=== PATIENT | male | born 1935 | race Caucasian/White ===

== ENCOUNTER 2017-05-31 20:20 | Inpatient (IN) | payer OTHER ==
[~2017-05-31] VITALS: Ht 167.6 cm; Wt 87.0 kg
[~2017-05-31 20:20] MED LIST: AMLODIPINE BESY10 MG PO; ARTHRITIS PAIN650 M5 PO; COLCRYS0.6 MG PO; COUMADIN3 MG PO; DOCUSATE SODIU100 MG PO; ENALAPRIL MALEA20 MG PO; FELODIPINE ER10 MG PO; FISH OIL 1,0001 EAC7 PO; GLUCOTROL XL2.5 MG PO; IRON325 M1 PO; LIDOCAINE700 MG TD; LISINOPRIL5 MG PO; LOPRESSOR50 MG PO; METOPROLOL SUCC25 MG PO; PANTOPRAZOLE SO40 MG PO; PLENDIL10 MG PO; POTASSIUM CHLO20 ME1 PO; SENNA-TIME S T1 EACH PO; THERAGRAN1 TABLET PO; TOPROL XL25 MG PO; TYLENOL EXTRA500 MG PO; XANAX0.25 MG PO; ZOCOR20 MG PO
[2017-05-31 20:50] LABS: HEMATOCRIT 46.9 % (38.0-50.0); HEMOGLOBIN 14.2 G/DL (12.5-16.6); MCH 28.3 PG (29.0-34.0); MCHC 30.3 G/DL (30.0-36.0); MCV 93.4 FL (86-99); PLATELET COUNT 191 K/uL (156-360); RBC DIS.WIDTH-CV 16.6 % (11.8-14.6); RBC DIS.WIDTH-SD 56.8 % (39-53); RED BLOOD COUNT 5.02 M/uL (4.00-5.50); WHITE BLOOD COUNT 9.9 K/uL (4.1-10.2)
[2017-05-31 21:02] LABS: CHLORIDE 106 mEq/L (99-109); POTASSIUM 4.7 mEq/L (3.7-5.4); SODIUM 143 mEq/L (136-147)
[2017-05-31 21:03] LABS: GLUCOSE 132 mg/dL (70-99)
[2017-05-31 21:07] LABS: CREATININE 1.3 mg/dL (0.6-1.3); GFR ESTIMATE (CALCULATED) 57 mL/min/ (58.99-99999)
[2017-05-31 21:08] LABS: UREA NITROGEN (BUN) 21 mg/dL (9-23)
[2017-05-31 21:11] LABS: TROP-I INTERPRETATION NEGATIVE; TROPONIN-I 0.08 ng/mL (0.0-0.30)
[2017-05-31 21:36] LABS: BASE EXCESS -7.8 mEq/L (-3 to +3); METHEMOGLOBIN 0.9 % (0-1.5); pH 7.31 (7.35-7.45)
[2017-05-31 21:37] LABS: BICARBONATE 17.6 mEq/L (22-26); COMMENTS - BLOOD GASES C+A+; DEVICE HHFNC; FI02 100 %; O2 FLOW 55 L/MIN; PCO2 35 mm Hg (35-45); PO2 84 mm Hg (80-100); SITE RR; TOTAL RESP RATE 22 resp/min
[2017-05-31] MEDS ORDERED: COUMADIN3 MG PO (23:18)
[2017-05-31] MEDS ORDERED: CYANOCOBALAM1000 MCG PO (23:20)
[2017-05-31] MEDS ORDERED: ALBUTEROL2.5 MG/3 M IH (23:20)
[2017-05-31] MEDS ORDERED: K-DUR20 MEQ PO (23:20)
[2017-05-31] MEDS ORDERED: AMBIEN10 MG PO (23:20)
[2017-05-31] MEDS ORDERED: OMEPRAZOLE20 MG PO (23:20)
[2017-05-31] MEDS ORDERED: FUROSEMIDE20 MG PO (23:20)
[2017-05-31] MEDS ORDERED: PROAIR HFA8.5 GM IH (23:23)
[2017-06-01] VITALS (20 sets, daily range): BP systolic 121–176; BP diastolic 69–142
[2017-06-01 01:31] LABS: INTER. NORMALIZED RATIO 3.5
[2017-06-01 01:34] LABS: PTT 38.8 SEC (25-37)
[2017-06-01 06:10] LABS: CHLORIDE 107 mEq/L (99-109); MAGNESIUM 1.7 mg/dL (1.3-2.7); POTASSIUM 4.2 mEq/L (3.7-5.4); SODIUM 142 mEq/L (136-147)
[2017-06-01 06:12] LABS: GLUCOSE 144 mg/dL (70-99)
[2017-06-01 06:15] LABS: PHOSPHORUS 3.9 mg/dL (2.5-4.9)
[2017-06-01 06:16] LABS: CREATININE 1.2 mg/dL (0.6-1.3); GFR ESTIMATE (CALCULATED) > 59 mL/min/ (58.99-99999); UREA NITROGEN (BUN) 24 mg/dL (9-23)
[2017-06-01 06:29] LABS: INTER. NORMALIZED RATIO 3.3
[2017-06-01 07:54] LABS: BASOPHIL (%) 0.4 % (0-1); EOSINOPHIL (%) 0 % (0-5); HEMATOCRIT 42.3 % (38.0-50.0); HEMOGLOBIN 13.3 G/DL (12.5-16.6); IMMATURE GRANULOCYTE (%) 0.3 % (0.0-0.7); LYMPHOCYTE (%) 7.4 % (15-42); LYMPHOCYTE COUNT 0.5 K/uL (1.0-2.8); MCH 28.1 PG (29.0-34.0); MCHC 31.4 G/DL (30.0-36.0); MONOCYTE (%) 9.6 % (3-12); MONOCYTE COUNT 0.7 K/uL (0-0.8); NEUTROPHIL (%) 82.3 % (45-76); NEUTROPHIL COUNT 5.7 K/uL (1.8-6.4); PLATELET COUNT 153 K/uL (156-360); RBC DIS.WIDTH-CV 16.4 % (11.8-14.6); RBC DIS.WIDTH-SD 53.9 % (39-53); RED BLOOD COUNT 4.73 M/uL (4.00-5.50); WHITE BLOOD COUNT 6.9 K/uL (4.1-10.2)
[2017-06-01 07:55] LABS: MCV 89.4 FL (86-99)
[2017-06-01 14:53] LABS: INTER. NORMALIZED RATIO 2.7
[2017-06-01 20:37] LABS: INTER. NORMALIZED RATIO 2.2
[2017-06-01 20:40] LABS: PTT 33.9 SEC (25-37)
[2017-06-02] VITALS (27 sets, daily range): BP systolic 71–229; BP diastolic 46–115
[2017-06-02 06:47] LABS: INTER. NORMALIZED RATIO 1.7
[2017-06-02 13:05] LABS: BODY FLUID PROTEIN 3.5 G/DL
[2017-06-02 13:37] LABS: TYPE OF FLUID PLEURAL
[2017-06-02 13:43] LABS: BASE EXCESS -1.7 mEq/L (-3 to +3); BICARBONATE 21.9 mEq/L (22-26); CARBOXY HGB 2.4 % (0-5); METHEMOGLOBIN 1.4 % (0-1.5); PCO2 33 mm Hg (35-45); PO2 77 mm Hg (80-100); SITE RR; pH 7.43 (7.35-7.45)
[2017-06-02 13:45] LABS: DEVICE VENT; FI02 40 %
[2017-06-02 13:46] LABS: MECHANICAL RATE 16 resp/min; MODE AC; PEEP 8 CM/H20; TIDAL VOLUME 500 ML; TOTAL RESP RATE 16 resp/min
[2017-06-02 13:57] LABS: APPEARANCE SL.HAZY/YELLOW
[2017-06-02 14:05] LABS: TOTAL PROTEIN 5.2 G/DL (6.4-8.3)
[2017-06-02 14:19] LABS: BODY FLUID EOSINOPHILS 0 % (0-25); BODY FLUID RBC'S 4000 /MM^3 (0-100); BODY FLUID WBC'S 283 /MM^3 (0-500); MONONUCLEAR WBC'S 49 %; POLYNUCLEAR WBC'S 51 % (0-25)
[2017-06-03] VITALS (21 sets, daily range): BP systolic 101–157; BP diastolic 51–76
[2017-06-03 03:18] LABS: HEMATOCRIT 40.5 % (38.0-50.0); HEMOGLOBIN 13.4 G/DL (12.5-16.6); MCH 28.4 PG (29.0-34.0); MCHC 33.1 G/DL (30.0-36.0); MCV 85.8 FL (86-99); NRBC (%) 0.3 /100 WBC (0-0); PLATELET COUNT 128 K/uL (156-360); RBC DIS.WIDTH-CV 16.4 % (11.8-14.6); RBC DIS.WIDTH-SD 51.4 % (39-53); RED BLOOD COUNT 4.72 M/uL (4.00-5.50); WHITE BLOOD COUNT 7.3 K/uL (4.1-10.2)
[2017-06-03 03:33] LABS: CHLORIDE 111 mEq/L (99-109); POTASSIUM 3.9 mEq/L (3.7-5.4); SODIUM 142 mEq/L (136-147)
[2017-06-03 03:34] LABS: GLUCOSE 134 mg/dL (70-99)
[2017-06-03 03:38] LABS: CREATININE 1.6 mg/dL (0.6-1.3); GFR ESTIMATE (CALCULATED) 45 mL/min/ (58.99-99999)
[2017-06-03 03:42] LABS: UREA NITROGEN (BUN) 45 mg/dL (9-23)
[2017-06-04] VITALS (18 sets, daily range): BP systolic 141–170; BP diastolic 53–84
[2017-06-04 08:23] LABS: BASOPHIL (%) 0.2 % (0-1); EOSINOPHIL (%) 0 % (0-5); HEMATOCRIT 42.6 % (38.0-50.0); HEMOGLOBIN 13.1 G/DL (12.5-16.6); IMMATURE GRANULOCYTE (%) 0.4 % (0.0-0.7); LYMPHOCYTE (%) 7.7 % (15-42); LYMPHOCYTE COUNT 0.4 K/uL (1.0-2.8); MCH 27.3 PG (29.0-34.0); MCHC 30.8 G/DL (30.0-36.0); MCV 88.9 FL (86-99); MONOCYTE (%) 8.1 % (3-12); MONOCYTE COUNT 0.4 K/uL (0-0.8); NEUTROPHIL (%) 83.6 % (45-76); NEUTROPHIL COUNT 4.3 K/uL (1.8-6.4); PLATELET COUNT 90 K/uL (156-360); RBC DIS.WIDTH-CV 16.7 % (11.8-14.6); RBC DIS.WIDTH-SD 54.3 % (39-53); RED BLOOD COUNT 4.79 M/uL (4.00-5.50); WHITE BLOOD COUNT 5.1 K/uL (4.1-10.2)
[2017-06-04 09:00] LABS: CHLORIDE 116 mEq/L (99-109); POTASSIUM 3.7 mEq/L (3.7-5.4); SODIUM 146 mEq/L (136-147)
[2017-06-04 09:01] LABS: MAGNESIUM 1.8 mg/dL (1.3-2.7)
[2017-06-04 09:02] LABS: GLUCOSE 141 mg/dL (70-99)
[2017-06-04 09:06] LABS: CREATININE 1.2 mg/dL (0.6-1.3); GFR ESTIMATE (CALCULATED) > 59 mL/min/ (58.99-99999); UREA NITROGEN (BUN) 44 mg/dL (9-23)
[2017-06-04 10:15] LABS: PHOSPHORUS 3.4 mg/dL (2.5-4.9)
[2017-06-05 00:12] VITALS: BP 173/77
[2017-06-05 06:35] VITALS: BP 166/81
[2017-06-05 07:12] LABS: CHLORIDE 118 MEQ/L (99-109); POTASSIUM 4.4 MEQ/L (3.7-5.4); SODIUM 148 MEQ/L (136-147)
[2017-06-05 07:17] LABS: GFR ESTIMATE (CALCULATED) > 59 mL/min/ (58.99-99999); GLUCOSE 151 mg/dL (70-99); UREA NITROGEN (BUN) 41 mg/dL (9-23)
[2017-06-05 16:00] VITALS: BP 173/82
[2017-06-05 20:40] VITALS: BP 185/84
[2017-06-06 00:06] VITALS: BP 159/74
[2017-06-06 07:41] LABS: CHLORIDE 116 MEQ/L (99-109); CREATININE 1.2 MG/DL (0.6-1.3); GFR ESTIMATE (CALCULATED) > 59 mL/min/ (58.99-99999); GLUCOSE 185 mg/dL (70-99); POTASSIUM 3.8 MEQ/L (3.7-5.4); SODIUM 151 MEQ/L (136-147); UREA NITROGEN (BUN) 42 mg/dL (9-23)
[2017-06-06 07:59] VITALS: BP 141/70
[2017-06-06 15:36] VITALS: BP 167/76
[2017-06-06 23:00] VITALS: BP 121/88
[2017-06-07 06:48] VITALS: BP 154/78
[2017-06-07 08:39] LABS: HEMATOCRIT 48.3 % (38.0-50.0); HEMOGLOBIN 14.9 G/DL (12.5-16.6); MCH 27.7 PG (29.0-34.0); MCHC 30.8 G/DL (30.0-36.0); MCV 89.9 FL (86-99); PLATELET COUNT 99 K/uL (156-360); RBC DIS.WIDTH-CV 16.6 % (11.8-14.6); RBC DIS.WIDTH-SD 54.5 % (39-53); RED BLOOD COUNT 5.37 M/uL (4.00-5.50); WHITE BLOOD COUNT 14.7 K/uL (4.1-10.2)
[2017-06-07 09:00] LABS: CHLORIDE 116 MEQ/L (99-109); CREATININE 1.4 MG/DL (0.6-1.3); GFR ESTIMATE (CALCULATED) 52 mL/min/ (58.99-99999); GLUCOSE 204 mg/dL (70-99); POTASSIUM 4.5 MEQ/L (3.7-5.4); SODIUM 150 MEQ/L (136-147); UREA NITROGEN (BUN) 38 mg/dL (9-23)
[2017-06-07 10:17] LABS: BASE EXCESS 1.7 mEq/L (-3 to +3); BICARBONATE 26.6 mEq/L (22-26); CARBOXY HGB 2.3 % (0-5); METHEMOGLOBIN 1.7 % (0-1.5); PCO2 42 mm Hg (35-45); PO2 64 mm Hg (80-100); pH 7.41 (7.35-7.45)
[2017-06-07 10:18] LABS: COMMENTS - BLOOD GASES A+C+; DEVICE NC; O2 FLOW 2 L/MIN; SITE RA; TOTAL RESP RATE 20 resp/min
[2017-06-07 16:12] VITALS: BP 153/70
[2017-06-07 23:11] VITALS: BP 161/70
[2017-06-08 06:20] LABS: HEMOGLOBIN 12.3 G/DL (12.5-16.6); MCH 27.4 PG (29.0-34.0); MCHC 30.8 G/DL (30.0-36.0); MCV 89.1 FL (86-99); RBC DIS.WIDTH-CV 16.3 % (11.8-14.6); RBC DIS.WIDTH-SD 53.3 % (39-53); RED BLOOD COUNT 4.49 M/uL (4.00-5.50); WHITE BLOOD COUNT 4.5 K/uL (4.1-10.2)
[2017-06-08 06:32] LABS: CHLORIDE 115 MEQ/L (99-109); CREATININE 1.2 MG/DL (0.6-1.3); GFR ESTIMATE (CALCULATED) > 59 mL/min/ (58.99-99999); GLUCOSE 215 mg/dL (70-99); POTASSIUM 3.1 MEQ/L (3.7-5.4); SODIUM 151 MEQ/L (136-147); UREA NITROGEN (BUN) 38 mg/dL (9-23)
[2017-06-08 06:37] LABS: IMM.PLATELET FRACTION 11.6 (1-7); PLAT.SUFFICIENCY DECREASED; PLATELET COUNT 46 K/uL (156-360)
[2017-06-08 08:11] VITALS: BP 161/90
[2017-06-08 15:35] VITALS: BP 169/72
[2017-06-08 21:41] VITALS: BP 173/81
[2017-06-08 22:41] VITALS: BP 164/73
[2017-06-09 06:29] LABS: CHLORIDE 109 MEQ/L (99-109); GFR ESTIMATE (CALCULATED) > 59 mL/min/ (58.99-99999); GLUCOSE 244 mg/dL (70-99); POTASSIUM 4.5 MEQ/L (3.7-5.4); SODIUM 141 MEQ/L (136-147); UREA NITROGEN (BUN) 32 mg/dL (9-23)
[2017-06-09 07:33] VITALS: BP 179/81
[2017-06-09 15:43] VITALS: BP 160/88
[2017-06-09 16:26] LABS: STOOL OCCULT BLD 1ST SPECIMEN POSITIVE
[2017-06-09 18:49] LABS: C DIFF TOXIN NEGATIVE (NEGATIVE)
[2017-06-09 22:00] VITALS: BP 169/74
[2017-06-09 23:42] VITALS: BP 186/83
[2017-06-10 08:44] VITALS: BP 156/71
[2017-06-10 09:20] LABS: HEMATOCRIT 43.2 % (38.0-50.0); HEMOGLOBIN 13.3 G/DL (12.5-16.6); MCH 27.5 PG (29.0-34.0); MCHC 30.8 G/DL (30.0-36.0); MCV 89.3 FL (86-99); RBC DIS.WIDTH-CV 16.2 % (11.8-14.6); RBC DIS.WIDTH-SD 52.4 % (39-53); RED BLOOD COUNT 4.84 M/uL (4.00-5.50); WHITE BLOOD COUNT 7.8 K/uL (4.1-10.2)
[2017-06-10 09:24] LABS: PLATELET COUNT 63 K/uL (156-360)
[2017-06-10 09:27] LABS: CHLORIDE 109 MEQ/L (99-109); POTASSIUM 4.2 MEQ/L (3.7-5.4); SODIUM 144 MEQ/L (136-147)
[2017-06-10 09:33] LABS: CREATININE 0.9 MG/DL (0.6-1.3); GFR ESTIMATE (CALCULATED) > 59 mL/min/ (58.99-99999); GLUCOSE 199 mg/dL (70-99); UREA NITROGEN (BUN) 33 mg/dL (9-23)
[2017-06-10 12:16] LABS: STOOL OCCULT BLD 1ST SPECIMEN POSITIVE
[2017-06-10 17:07] VITALS: BP 162/69
[2017-06-10 22:00] VITALS: BP 150/60
[2017-06-10 22:35] VITALS: BP 182/80
[2017-06-11 02:45] VITALS: BP 150/70
[2017-06-11 06:51] LABS: CHLORIDE 108 MEQ/L (99-109); CREATININE 1.1 MG/DL (0.6-1.3); GFR ESTIMATE (CALCULATED) > 59 mL/min/ (58.99-99999); GLUCOSE 167 mg/dL (70-99); POTASSIUM 4.5 MEQ/L (3.7-5.4); SODIUM 146 MEQ/L (136-147); UREA NITROGEN (BUN) 35 mg/dL (9-23)
[2017-06-11 08:21] VITALS: BP 144/68
[2017-06-11 09:37] LABS: STOOL OCCULT BLD 1ST SPECIMEN POSITIVE
[2017-06-11 15:00] VITALS: BP 180/80
[2017-06-12 00:20] VITALS: BP 154/83
[2017-06-12 06:41] LABS: BASOPHIL (%) 0.1 % (0-1); EOSINOPHIL (%) 0 % (0-5); HEMATOCRIT 42.9 % (38.0-50.0); HEMOGLOBIN 13.7 G/DL (12.5-16.6); IMMATURE GRANULOCYTE (%) 0.4 % (0.0-0.7); LYMPHOCYTE (%) 2.7 % (15-42); LYMPHOCYTE COUNT 0.3 K/uL (1.0-2.8); MCHC 31.9 G/DL (30.0-36.0); MCV 87.6 FL (86-99); MONOCYTE (%) 5.8 % (3-12); MONOCYTE COUNT 0.7 K/uL (0-0.8); NEUTROPHIL COUNT 10.3 K/uL (1.8-6.4); PLATELET COUNT 115 K/uL (156-360); RBC DIS.WIDTH-CV 16.4 % (11.8-14.6); RBC DIS.WIDTH-SD 52.4 % (39-53); WHITE BLOOD COUNT 11.3 K/uL (4.1-10.2)
[2017-06-12 06:53] LABS: CHLORIDE 107 MEQ/L (99-109); CREATININE 0.9 MG/DL (0.6-1.3); GFR ESTIMATE (CALCULATED) > 59 mL/min/ (58.99-99999); GLUCOSE 172 mg/dL (70-99); POTASSIUM 4.3 MEQ/L (3.7-5.4); SODIUM 144 MEQ/L (136-147); UREA NITROGEN (BUN) 39 mg/dL (9-23)
[2017-06-12 08:12] VITALS: BP 154/88
[2017-06-12 17:05] VITALS: BP 172/83
[2017-06-12 20:45] VITALS: BP 150/78
[2017-06-12 23:50] VITALS: BP 145/64
[2017-06-13 06:22] LABS: CHLORIDE 110 MEQ/L (99-109); GFR ESTIMATE (CALCULATED) > 59 mL/min/ (58.99-99999); GLUCOSE 194 mg/dL (70-99); POTASSIUM 4.2 MEQ/L (3.7-5.4); SODIUM 146 MEQ/L (136-147); UREA NITROGEN (BUN) 38 mg/dL (9-23)
[2017-06-13 06:25] LABS: BASOPHIL (%) 0 % (0-1); EOSINOPHIL (%) 0 % (0-5); HEMATOCRIT 40.3 % (38.0-50.0); HEMOGLOBIN 12.6 G/DL (12.5-16.6); IMMATURE GRANULOCYTE (%) 0.6 % (0.0-0.7); LYMPHOCYTE COUNT 0.3 K/uL (1.0-2.8); MCH 27.8 PG (29.0-34.0); MCHC 31.3 G/DL (30.0-36.0); MCV 88.8 FL (86-99); MONOCYTE (%) 4.9 % (3-12); MONOCYTE COUNT 0.4 K/uL (0-0.8); NEUTROPHIL (%) 91.5 % (45-76); NEUTROPHIL COUNT 7.7 K/uL (1.8-6.4); PLATELET COUNT 95 K/uL (156-360); RBC DIS.WIDTH-CV 16.5 % (11.8-14.6); RBC DIS.WIDTH-SD 53.8 % (39-53); RED BLOOD COUNT 4.54 M/uL (4.00-5.50); WHITE BLOOD COUNT 8.4 K/uL (4.1-10.2)
[2017-06-13 08:01] VITALS: BP 161/72
[2017-06-13 16:34] VITALS: BP 179/80
[2017-06-14 07:26] VITALS: BP 172/78
[2017-06-14 15:46] VITALS: BP 140/60
[2017-06-15 00:20] VITALS: BP 118/71
[2017-06-15 08:14] VITALS: BP 178/83
[2017-06-15 09:42] LABS: HEMATOCRIT 39.7 % (38.0-50.0); HEMOGLOBIN 12.5 G/DL (12.5-16.6); MCH 27.7 PG (29.0-34.0); MCHC 31.5 G/DL (30.0-36.0); RBC DIS.WIDTH-CV 15.9 % (11.8-14.6); RBC DIS.WIDTH-SD 51.5 % (39-53); RED BLOOD COUNT 4.51 M/uL (4.00-5.50); WHITE BLOOD COUNT 9.7 K/uL (4.1-10.2)
[2017-06-15 09:47] LABS: PLATELET COUNT 124 K/uL (156-360)
[2017-06-15 11:15] LABS: CHLORIDE 104 MEQ/L (99-109); CREATININE 1.1 MG/DL (0.6-1.3); GFR ESTIMATE (CALCULATED) > 59 mL/min/ (58.99-99999); GLUCOSE 230 mg/dL (70-99); POTASSIUM 4.6 MEQ/L (3.7-5.4); SODIUM 140 MEQ/L (136-147); UREA NITROGEN (BUN) 47 mg/dL (9-23)
[2017-06-15 16:11] VITALS: BP 158/71
[2017-06-16 00:51] VITALS: BP 123/65
[2017-06-16 09:33] VITALS: BP 152/64
[2017-06-16] MEDS ORDERED: SPIRIVA RESPIMAT4 GM IH (11:28)
[2017-06-16] MEDS ORDERED: ADVAIR HFA120 INHALA IH (11:39)
[2017-06-16] MEDS ORDERED: TRAZODONE HCL50 MG PO (11:39)
[2017-06-16 13:02] LABS: INTER. NORMALIZED RATIO 1.1
[2017-06-16 16:55] VITALS: BP 149/70
[2017-06-16 23:36] VITALS: BP 141/70
[2017-06-17 03:06] VITALS: BP 132/65
[2017-06-17 06:04] LABS: INTER. NORMALIZED RATIO 1.1
[2017-06-17 07:09] VITALS: BP 165/78
[2017-06-17 15:23] VITALS: BP 163/59
== END 2017-06-17 18:40 | DRG 166 ==
LOC: EME → EDBD 20:20 → EDOF 06-01 01:48 → 4WEST 06-01 01:48 → ENRESERV 06-01 01:51 → 4WEST 06-01 05:51 → ENRESERV 06-04 14:52 → 4WEST 06-04 14:53 → ENRESERV 06-04 15:26 → 4WEST 06-04 17:28 → 5EAST 06-04 19:33 → ENRESERV 06-12 17:52 → 5EAST 06-12 19:15
PROVIDERS: Emergency Medicine; Hospitalist; Internal Medicine; Internal Medicine Pulmonary Disease; Specialist
PROC: 5A09357 Assistance with Respiratory Ventilation, Less than 24 Consecutive Hours, Continuous Positive Airway Pressure (ICD-10-PCS; principal; 2017-06-01)
PROC: 5A12012 Performance of Cardiac Output, Single, Manual (ICD-10-PCS; 2017-06-02)
PROC: 0W9930Z Drainage of Right Pleural Cavity with Drainage Device, Percutaneous Approach (ICD-10-PCS; 2017-06-02)
PROC: 0BH17EZ Insertion of Endotracheal Airway into Trachea, Via Natural or Artificial Opening (ICD-10-PCS; 2017-06-02)
PROC: 5A1945Z Respiratory Ventilation, 24-96 Consecutive Hours (ICD-10-PCS; 2017-06-02)
PROC: 0PB13ZX Excision of 1 to 2 Ribs, Percutaneous Approach, Diagnostic (ICD-10-PCS; 2017-06-04)
PROC: 5A09557 Assistance with Respiratory Ventilation, Greater than 96 Consecutive Hours, Continuous Positive Airway Pressure (ICD-10-PCS; 2017-06-04)
PROC: 0W9930Z Drainage of Right Pleural Cavity with Drainage Device, Percutaneous Approach (ICD-10-PCS; 2017-06-16)
DX: J96.01 Acute respiratory failure with hypoxia (principal); I46.9 Cardiac arrest, cause unspecified; J18.9 Pneumonia, unspecified organism; J44.0 Chronic obstructive pulmonary disease with (acute) lower respiratory infection; G93.1 Anoxic brain damage, not elsewhere classified; I50.30 Unspecified diastolic (congestive) heart failure; C34.90 Malignant neoplasm of unspecified part of unspecified bronchus or lung; F05 Delirium due to known physiological condition; B37.0 Candidal stomatitis; J91.0 Malignant pleural effusion; I25.5 Ischemic cardiomyopathy; N28.89 Other specified disorders of kidney and ureter; J98.11 Atelectasis; I51.7 Cardiomegaly; E87.1 Hypo-osmolality and hyponatremia; E87.0 Hyperosmolality and hypernatremia; E87.2 Acidosis; N17.9 Acute kidney failure, unspecified; R18.8 Other ascites; R05 Cough; I48.2 Chronic atrial fibrillation; M54.6 Pain in thoracic spine; E78.5 Hyperlipidemia, unspecified; E11.9 Type 2 diabetes mellitus without complications; D69.6 Thrombocytopenia, unspecified; F41.9 Anxiety disorder, unspecified; J44.9 Chronic obstructive pulmonary disease, unspecified; G47.33 Obstructive sleep apnea (adult) (pediatric); I27.20 Pulmonary hypertension, unspecified; I25.10 Atherosclerotic heart disease of native coronary artery without angina pectoris; I11.0 Hypertensive heart disease with heart failure; D64.9 Anemia, unspecified; K74.60 Unspecified cirrhosis of liver; Z86.010 Personal history of colon polyps; M89.9 Disorder of bone, unspecified; Z79.899 Other long term (current) drug therapy; Z79.4 Long term (current) use of insulin; Z80.1 Family history of malignant neoplasm of trachea, bronchus and lung; Z79.01 Long term (current) use of anticoagulants; Z95.0 Presence of cardiac pacemaker; Z87.891 Personal history of nicotine dependence; Z95.1 Presence of aortocoronary bypass graft; Z66 Do not resuscitate; Z75.1 Person awaiting admission to adequate facility elsewhere; Z82.49 Family history of ischemic heart disease and other diseases of the circulatory system
CPT/HCPCS: 36600; 70450; 71045; 71275; 74177; 77012; 80048; 80202; 82272; 82803; 82945; 82948; 83605; 83615; 83615 91; 83735; 83880; 84100; 84155; 84157; 84484; 85025; 85027; 85610; 85730; 86850; 86900; 86901; 87040; 87070; 87075; 87086; 87205; 87493; 87641; 88108; 88305; 88341 TC; 88342 TC; 89051; 93005; 93306; 94002; 94003; 94640; 94640 76; 94660; 94760; 94799; 97530 GO; 97530 GP; 99281; 99285; C1729; C1751; C1894; J0690; J1644; J1815; J1940; J2060; J2543; J3010; J3370; J3430; J7030; J7050; J7070; J7120; J7512; P9017; S0020